=== PATIENT | female | born 1950 | race Caucasian/White ===

== ENCOUNTER 2016-10-24 18:23 | Emergency (ER) | payer MEDICARE, OTHER ==
[2016-10-24 18:34] VITALS: BP 132/65
[2016-10-24 19:15] LABS: Hematocrit 35.6 % (37.0-47.0); Hemoglobin 11.6 gm/dL (12.5-16.0); Mean Cell Volume 90.6 fl (78-100); Mean Corpuscular Hemoglobin 29.5 pg (27-31); Mean Corpuscular Hgb Conc 32.6 g/dl (32-36); Mean Platelet Volume 9.9 fl (6.0-9.5); Neutrophil # 3.8 K/mm3 (1.3-6.0); Neutrophil % 60.2 % (42-75.0); Platelet Count 368 K/mm3 (150-450); Red Blood Count 3.93 M/mm3 (4.2-5.4); Red Cell Distribution Width 12.7 % (11.5-14.0); White Blood Count 6.3 K/mm3 (4.0-10.5)
[2016-10-24 19:22] LABS: Albumin * 3.5 gm/dl (3.4-5.0); Anion Gap 11.2 mmol/L (6.8-13.8); BUN/Creatinine Ratio 25.9 (9.0-21.6); Bilirubin, Total 0.2 mg/dL (0.0-1.1); Ca. Corrected For Albumin 8.9 mg/dL (8.4-10.2); Calcium * 8.8 mg/dL (7.9-10.9); Carbon Dioxide 29.5 mmol/L (24-32.6); Potassium 3.7 mmol/L (3.4-4.6); Total Protein 6.8 gm/dL (6.2-8.2)
--- NOTE | 2016-10-24 19:32 | ERNOTE ---
Lower Extremity HPI - Narrative Date of Service: 10/24/16 - General Lower Extremities Pain: leg: left Time Seen by Provider: 10/24/16 19:31 Source: patient, RN notes reviewed Exam Limitations: no limitations - Immun/Allergies/Home Medications Immunizations: IMMUNIZATION HX Immunizations Up to Date Yes History of Influenza Vaccine Yes Hx Pneumococcal Vaccination Yes Allergies/Adverse Reactions: Allergies Allergy/AdvReac Type Severity Reaction Status Date / Time No Known Allergies Allergy Unverified 10/24/16 18:27 Home Medications: HOME MEDICATIONS Cetirizine HCl [Zyrtec] 10 mg PO DAILY 10/24/16 [Last Taken Unknown] Cholecalciferol [Vitamin D] 5,000 unit PO DAILY 10/24/16 [Last Taken Unknown] Doxycycline Monohydrate 100 mg PO BID 10/24/16 [Last Taken Unknown] Levothyroxine Sodium [Synthroid] 75 mcg PO DAILY 10/24/16 [Last Taken Unknown] Omeprazole 40 mg PO BID 10/24/16 [Last Taken Unknown] Simvastatin [Zocor] 40 mg PO HS 10/24/16 [Last Taken Unknown] Valsartan/Hydrochlorothiazide [Diovan Hct 160-12.5 mg Tab] 1 each PO 10/24/16 [ Last Taken Unknown] Vitamin E 1,000 unit PO DAILY 10/24/16 [Last Taken Unknown] - History of Present Illness Narrative: 66 y/o female ambulatory to the ED for left calf pain that began a couple of days ago. She was seen by her PCP today who recommended further evaluation for a possible DVT. She has no prior history of clots. She has not had any recent periods of limited mobility for any reason. Method of Injury: Reports: no apparent injury Prior Treament: Denies: similar symptoms before Review of Systems - Review of Systems Constitutional: Absent: recent illness, fever, chills, malaise EYE: Present: no symptoms reported ENT: Present: no symptoms reported Respiratory: Absent: shortness of breath, cough Cardiology: Absent: chest pain, edema, claudication Gastrointestinal/Abdominal: Present: no symptoms reported Genitourinary: Present: no symptoms reported Musculoskeletal: Absent: joint pain, joint swelling Skin: Absent: rash, lesions, lumps, change in color Neurological: Absent: weakness, numbness, tingling Endocrine: Present: no symptoms reported Hematologic/Lymphatic: Present: no symptoms reported Psych: Present: no symptoms reported - Patient's Past Medical History Patient History - Medical: GERD, Hypothyroidism Patient History - Cardiac/Respiratory: Hypertension, Hyperlipidemia Patient History - Cancer: No Hx of Cancer Patient History - Surgical Procedures: Cholecystectomy, T & A, Other Patient History - Other: None LMP (females 10-50): Menopausal - Social History Living Situations: home Abuse History: No History of abuse Psych History: No pertinent hx Smoking Status: Former smoker Have you smoked in the past 12 months: No Do you dip or chew tobacco: No Alcohol Use: none Drug Use: none - Immunizations Immunizations Up to Date: Yes Hx Pneumococcal Vaccination: Yes History of Influenza Vaccine: Yes Physical Exam - Physical Exam General Appearance: Present: wd/wn, alert, no apparent distress Neck: Present: normal inspection, nontender, supple, full range of motion Respiratory: Present: no respiratory distress, normal breath sounds, no accessory muscle use, lungs clear Cardiovascular/Chest: Present: regular rate, rhythm, no murmur, normal peripheral pulses Extremity Exam: Present: normal range of motion, no edema, calf tenderness - left Neurological Exam: Present: alert, oriented, normal mood/affect, no motor/ sensory deficits Skin Exam: Present: normal color, warm/dry ED Progress - Vital Signs Patient's Vital Signs:: I have reviewed the patient's vital signs. Vital Signs: Vital Signs 10/24/16 18:31 Temperature 36.5 C Pulse Rate 84 Respiratory 16 Rate Blood Pressure 132/65 - Progress/Reassessment Chief Complaint: Lower Extremity Pain/ Injury Progress:: Unchanged Departure Clinical Impression: Pain of left calf - Departure Disposition: Home self-care Condition: Good Instructions: Muscle Strain, [id number] Additional Instructions: Tylenol and/or advil for pain Heat to sore area Follow up if pain worsens or if you develop other concerning symptoms Referrals: Hannah Zuleta DO [Primary Care Provider] -
== END 2016-10-24 20:00 | disposition home or self-care (01) ==
LOC: ER 18:23
DX: M79.1 Myalgia (principal); E03.9 Hypothyroidism, unspecified; K21.9 Gastro-esophageal reflux disease without esophagitis; E78.5 Hyperlipidemia, unspecified; I10 Essential (primary) hypertension

== ENCOUNTER 2016-12-03 08:29 | Day surgery (SDC) | payer MEDICARE, OTHER ==
[~2016-12-03 08:29] MED LIST: RINGERS SOLUTION,LACTATED 1,000 ML IV PRN; ceFAZolin SODIUM 1 GM in DEXTROSE 5 % IN WATER 100 ML IV PRN
[2016-12-03] MEDS ORDERED: RINGERS SOLUTION,LACTATED 1,000 ML IV ONE (09:09)
[2016-12-03] MEDS ORDERED: BUPIVACAINE HCL 50 ML VIAL IJ ONE ×2 (09:49)
[2016-12-03] MEDS ORDERED: LIDOCAINE HCL 50 ML VIAL IJ ONE ×2 (09:49)
[2016-12-03] MEDS ORDERED: DEXAMETHASONE SOD PHOSPHATE 4 MG/ML VIAL IJ ONE (10:25)
[2016-12-03 11:43] VITALS: BP 125/68
== END 2016-12-03 08:30 | disposition home or self-care (01) ==
LOC: AMB 08:29
PROVIDERS: ATTEND Student in an Organized Health Care Education/Training Program
DX: G57.62 Lesion of plantar nerve, left lower limb (principal); I10 Essential (primary) hypertension; E78.5 Hyperlipidemia, unspecified; E03.9 Hypothyroidism, unspecified; K21.9 Gastro-esophageal reflux disease without esophagitis; Z68.25 Body mass index [BMI] 25.0-25.9, adult

== ENCOUNTER 2017-03-09 23:23 | Emergency (ER) | payer MEDICARE, OTHER ==
[2017-03-10] MEDS ORDERED: AMOXICILLIN TRIHYDRATE 250 MG CAPSULE PO ONE (01:45)
[2017-03-10] MEDS ORDERED: AMOXICILLIN TRIHYDRATE 250 MG CAPSULE ONE (01:46)
[2017-03-10 01:53] VITALS: BP 119/74
--- NOTE | 2017-03-10 01:57 | ERNOTE ---
Medical Problem HPI - Narrative Date of Service: 03/10/17 - General Chief Complaint: General Assessment Time Seen by Provider: 03/10/17 01:37 Source: patient, family - Immun/Allergies/Home Medications Immunizations: IMMUNIZATION HX Immunizations Up to Date Yes History of Influenza Vaccine Yes Hx Pneumococcal Vaccination Yes Allergies/Adverse Reactions: Allergies No Known Allergies Allergy (Unverified 12/03/16 08:45) Home Medications: HOME MEDICATIONS Cetirizine HCl [Zyrtec] 10 mg PO DAILY 10/24/16 [Last Taken Unknown] Omeprazole 20 mg PO BID 10/24/16 [Last Taken Unknown] Simvastatin [Zocor] 40 mg PO HS 10/24/16 [Last Taken Unknown] Levothyroxine Sodium [Synthroid] 75 mcg PO DAILY 12/03/16 [Last Taken Unknown] Valsartan/Hydrochlorothiazide [Diovan Hct 160-12.5 mg Tab] 1 each PO DAILY 12/03 [Last Taken 12/03/16 07:30] Calcium Carbonate [Calcium] 500 mg PO DAILY 03/09/17 [Last Taken Unknown] Cholecalciferol [Vitamin D] 1,000 unit PO DAILY 03/09/17 [Last Taken Unknown] Magnesium 800 mg PO DAILY 03/09/17 [Last Taken Unknown] Melatonin 1 mg PO HS 03/09/17 [Last Taken Unknown] Vitamin E 200 unit PO DAILY 03/09/17 [Last Taken Unknown] Amoxicillin 875 mg PO BID #7 tablet 03/10/17 [Last Taken Unknown] - History of Present History Narrative: left facial swelling and pain just after eating cookies. Date (Duration): 03/09/17 Time (Timing): 01:00 Timing: other - improving Severity: moderate Modifying Factors - (Improves): Present: other - nothing Modifying Factors - (Worsens): Present: eating - swelling significantly worsened after eating cookies. Review of Systems - Review of Systems Constitutional: Present: no symptoms reported EYE: Present: no symptoms reported ENT: Present: See HPI Respiratory: Present: no symptoms reported Cardiology: Present: no symptoms reported Gastrointestinal/Abdominal: Present: no symptoms reported Genitourinary: Present: no symptoms reported Musculoskeletal: Present: no symptoms reported Neurological: Present: no symptoms reported Endocrine: Present: no symptoms reported Hematologic/Lymphatic: Present: no symptoms reported Psych: Present: anxiety - patient did note that she became quite alarmed when she saw the swelling because of her family history of lymphoma's and was concerned about getting this evaluated immediately. She notes now that is improving spontaneously on its own without any significant intervention medically. All Other Systems: All systems neg except as marked - Narrative Narrative: Past medical history, past surgical history, medications, allergies, social history, family history reviewed. - Patient's Past Medical History Patient History - Medical: GERD, Hypothyroidism, Osteoporosis, Other Patient History - Cardiac/Respiratory: Hypertension, Hyperlipidemia Patient History - Cancer: No Hx of Cancer Patient History - Surgical Procedures: Cholecystectomy, T & A, Other Patient History - Other: None LMP (females 10-50): Menopausal - Family History Mother Family History - Medical: , No pertinent hx Family History - Cardiac/Respiratory: No pertinent hx Family History - Cancer: Lymphoma Sister Family History - Medical: No pertinent hx Family History - Cardiac/Respiratory: Asthma Family History - Cancer: Melanoma Uncles Family History - Medical: , No pertinent hx Family History - Cardiac/Respiratory: No pertinent hx Family History - Cancer: Brain, Melanoma - Social History Living Situations: alone Abuse History: No History of abuse Psych History: No pertinent hx Have you smoked in the past 12 months: No Do you dip or chew tobacco: No Alcohol Use: none Drug Use: none - Immunizations Immunizations Up to Date: Yes Hx Pneumococcal Vaccination: Yes History of Influenza Vaccine: Yes Physical Exam - Physical Exam General Appearance: Present: wd/wn, alert, no apparent distress Head Exam: Present: normal inspection, no evidence of injury Ears, Nose, Throat: Present: sinus pain/drainage - on left side , normal pharynx , other - left salivary Neck: Present: normal inspection, nontender Respiratory: Present: no respiratory distress, normal breath sounds Cardiovascular/Chest: Present: regular rate, rhythm, no murmur, normal peripheral pulses Peripheral Pulses: N=norm/S=strong/W=weak/B=bound/A=absent: Carotid (R): Normal , Carotid (L): Normal Gastrointestinal/Abdominal: Present: normal bowel sounds, nontender, nondistended, soft Rectal Exam: Present: deferred Back Exam: Present: normal inspection Extremity Exam: Present: normal inspection Neurological Exam: Present: alert, oriented, normal mood/affect Skin Exam: Present: warm/dry, jaundice Lymphatic Exam: Present: no adenopathy, other - no cervical adenopathy . Absent : axilla node (R), axilla node (L) ED Progress - Results and Orders Results and Orders: No labs necessary at this time - Vital Signs Patient's Vital Signs:: I have reviewed the patient's vital signs. Vital Signs: Vital Signs 03/09/17 03/10/17 23:27 01:25 Temperature 36.8 C Pulse Rate 81 82 Respiratory 16 16 Rate Blood Pressure 151/74 140/70 O2 Sat by Pulse 98 98 Oximetry - Progress/Reassessment Chief Complaint: General Assessment Progress:: Improved Plan - Plan Plan: Plan is to discharge patient on antibiotic and instructions regarding salivary gland infection. Departure - Departure Clinical Impression: Infectious sialoadenitis of major salivary gland Disposition: Home self-care Condition: Good Instructions: Salivary Gland Infection Additional Instructions: Take your medication as prescribed. Prescriptions: Amoxicillin 875 mg PO BID #7 tablet
== END 2017-03-10 01:57 | disposition home or self-care (01) ==
LOC: ER 23:23
DX: K11.21 Acute sialoadenitis (principal); K21.9 Gastro-esophageal reflux disease without esophagitis; E03.9 Hypothyroidism, unspecified; M19.90 Unspecified osteoarthritis, unspecified site; I10 Essential (primary) hypertension; E78.5 Hyperlipidemia, unspecified